=== PATIENT | female | born 1965 | race African-American/Black ===

== ENCOUNTER 2019-02-14 08:13 | Inpatient (IN) ==
[2019-02-14 09:05] LABS: HEMATOCRIT 29.9 % (37.0-47.0); IMM GRAN# 0.01 X1000 (0.0-0.04); IMM GRAN% 0.2 % (0.0-0.5); LYMPH# 2.48 X1000 (1.2-3.4); LYMPH% 37.5 % (20.5-51.1); MCH 32.1 PG (27-31); MCHC 33.4 g/dL (33-37); MCV 95.8 FL (81-99); MONO% 6.1 % (1.7-9.3); MPV 11.3 FL (7.4-10.4); NEUT# 3.72 X1000 (1.4-6.5); NEUT% 56.2 % (42.2-75.2); PLT 116 X1000 (130-400); RBC 3.12 XMIL (4.2-5.4); RDW 12.8 % (11.5-14.5); WBC 6.61 X1000 (4.8-10.8)
[2019-02-14 09:15] LABS: ALBUMIN 4.3 g/dL (3.5-5.0); CALCIUM 9.3 mg/dL (8.8-10.2); CREATININE 1.7 mg/dL (0.5-0.9); MAGNESIUM 1.7 mg/dL (1.5-2.7); POTASSIUM 3.4 mmol/L (3.5-5.1); TOTAL BILIRUBIN 0.3 mg/dL (0.20-1.00); TOTAL PROTEIN 6.9 g/dL (6.3-8.3)
[2019-02-14 11:23] LABS: URINE SOURCE CATH
[2019-02-14 11:35] LABS: UR AMPHETAMINES QUAL NONE DETECTED (NONE DETECT); UR BARBITUATES QUAL NONE DETECTED (NONE DETECT); UR BENZODIAZEPIN QUAL NONE DETECTED (NONE DETECT); UR CANNABINOIDS QUAL NONE DETECTED (NONE DETECT); UR COCAINE QUAL NONE DETECTED (NONE DETECT); UR METHADONE QUAL NONE DETECTED (NONE DETECT); UR METHAMPHETAMINE QUAL NONE DETECTED (NONE DETECT); UR OPIATES QUAL NONE DETECTED (NONE DETECT); UR OXYCODONE QUAL NONE DETECTED (NONE DETECT); UR PCP QUAL NONE DETECTED (NONE DETECT); UR PROPOXYPHENE QUAL NONE DETECTED (NONE DETECT); UR TCA QUAL NONE DETECTED (NONE DETECT)
[2019-02-14 11:56] LABS: BILIRUBIN URINE NEGATIVE (NEGATIVE); BLOOD URINE TRACE (NEGATIVE); COLOR YELLOW; GLUCOSE URINE NEGATIVE (NEGATIVE); KETONE URINE TRACE mg/dL (NEGATIVE); LEUKOCYTES URINE MODERATE (NEGATIVE); NITRITE URINE NEGATIVE (NEGATIVE); PH URINE 6.5; PROTEIN URINE TRACE mg/dL (NEGATIVE); SP GRAVITY URINE 1.016; TURBIDITY URINE TURBID (CLEAR); UROBILINOGEN URINE 4 mg/dL (NORMAL)
[2019-02-14 12:10] LABS: UR EPITHELIAL CELLS <10 /HPF (<10); URINE BACTERIA 2+ /HPF; URINE CASTS NONE SEEN; URINE CRYSTALS NONE SEEN; URINE RBC <10 /HPF (<10); URINE SMALL ROUND CELLS NONE SEEN; URINE YEAST NONE SEEN
[2019-02-14 12:11] LABS: URINE WBC <10 /HPF (<10)
[2019-02-14 13:55] LABS: HEMOGLOBIN A1C 4.6 % (4.8-6.0)
[2019-02-15 05:18] LABS: BASO# 0.01 X1000 (0.0-0.2); BASO% 0.1 % (0.0-0.8); HEMATOCRIT 29.9 % (37.0-47.0); HEMOGLOBIN 9.9 g/dL (12.0-16.0); IMM GRAN# 0.01 X1000 (0.0-0.04); IMM GRAN% 0.1 % (0.0-0.5); LYMPH% 30.6 % (20.5-51.1); MCH 31.9 PG (27-31); MCHC 33.1 g/dL (33-37); MCV 96.5 FL (81-99); MONO# 0.56 X1000 (0.11-0.59); MONO% 7.8 % (1.7-9.3); MPV 11.5 FL (7.4-10.4); NEUT# 4.42 X1000 (1.4-6.5); NEUT% 61.4 % (42.2-75.2); PLT 119 X1000 (130-400); RDW 13.2 % (11.5-14.5)
[2019-02-15 05:37] LABS: ALBUMIN 4.1 g/dL (3.5-5.0); CALCIUM 9.4 mg/dL (8.8-10.2); CREATININE 1.5 mg/dL (0.5-0.9); MAGNESIUM 1.7 mg/dL (1.5-2.7); POTASSIUM 3.6 mmol/L (3.5-5.1); TOTAL BILIRUBIN 0.3 mg/dL (0.20-1.00); TOTAL PROTEIN 6.9 g/dL (6.3-8.3)
[2019-02-16 07:17] LABS: CHLORIDE 110 mmol/L (98-107); POTASSIUM 3.9 mmol/L (3.5-5.1); SODIUM 146 mmol/L (136-145); TCO2 24 mmol/L (25-35)
[2019-02-16 07:18] LABS: AGAP 12; ALBUMIN 3.9 g/dL (3.5-5.0); ALKALINE PHOSPHATASE 64 U/L (32-104); BUN 19 mg/dL (8-22); CALCIUM 9.7 mg/dL (8.8-10.2); COSMO 293; CREATININE 1.3 mg/dL (0.5-0.9); GLUCOSE 102 mg/dL (70-104); GOT 13 U/L (10-30); TOTAL PROTEIN 6.9 g/dL (6.3-8.3)
[2019-02-16 07:19] LABS: GPT 5 U/L (10-36); MAGNESIUM 1.6 mg/dL (1.5-2.7)
[2019-02-16 07:27] VITALS: BP 159/88
[2019-02-16 08:52] LABS: EOS# 0.01 X1000 (0.0-0.7); EOS% 0.2 % (0.0-10.0); HEMATOCRIT 28.9 % (37.0-47.0); HEMOGLOBIN 9.4 g/dL (12.0-16.0); IMM GRAN# 0.02 X1000 (0.0-0.04); IMM GRAN% 0.3 % (0.0-0.5); LYMPH# 2.42 X1000 (1.2-3.4); LYMPH% 38.9 % (20.5-51.1); MCH 31.6 PG (27-31); MCHC 32.5 g/dL (33-37); MCV 97.3 FL (81-99); MONO# 0.59 X1000 (0.11-0.59); MONO% 9.5 % (1.7-9.3); MPV 11.2 FL (7.4-10.4); NEUT# 3.18 X1000 (1.4-6.5); NEUT% 51.1 % (42.2-75.2); PLT 103 X1000 (130-400); RBC 2.97 XMIL (4.2-5.4); RDW 13.1 % (11.5-14.5); WBC 6.22 X1000 (4.8-10.8)
== END 2019-02-16 12:10 | disposition home health service (06) | DRG 683 ==
LOC: P.ED 08:13 → P.MEDSURG 13:25 → SUATTDRO 13:25
PROVIDERS: ATTEND Internal Medicine

== ENCOUNTER 2019-05-06 08:12 | Inpatient (IN) ==
[2019-05-06] MEDS ORDERED: NS 1,000 ML IV ONE ×2 (09:18→11:27)
[2019-05-06] MEDS ORDERED: ZOFRAN IV ONE (09:18)
[2019-05-06 09:20] LABS: URINE SOURCE CLEAN CATCH
[2019-05-06 09:23] LABS: BILIRUBIN URINE NEGATIVE (NEGATIVE); BLOOD URINE NEGATIVE (NEGATIVE); COLOR YELLOW; GLUCOSE URINE NEGATIVE (NEGATIVE); KETONE URINE TRACE mg/dL (NEGATIVE); LEUKOCYTES URINE NEGATIVE (NEGATIVE); NITRITE URINE NEGATIVE (NEGATIVE); PROTEIN URINE TRACE mg/dL (NEGATIVE); SP GRAVITY URINE 1.016; TURBIDITY URINE CLEAR (CLEAR); UR EPITHELIAL CELLS <10 /HPF (<10); URINE BACTERIA NEGATIVE /HPF; URINE RBC <10 /HPF (<10); URINE WBC <10 /HPF (<10); UROBILINOGEN URINE NORMAL (NORMAL)
--- NOTE | 2019-05-06 09:24 | PROVIDER DOCUMENTATION ---
HPI-Abdominal Pain/GI Problem - General Chief Complaint: Nausea/Vomiting Stated Complaint: ABD PAIN / VOMITTING / LEG PAIN Time Seen by Provider: 05/06/19 09:02 Allergies/Adverse Reactions: Patient Allergies Allergy/AdvReac Type Severity Reaction Status Date / Time phenobarbital Allergy ITCHING Verified 02/14/19 14:25 Home Medications: Home Medication List Medication Instructions Recorded Confirmed Last Taken Type Carbamazepine [Tegretol] 200 mg PO TID@0900,1500,2100 02/14/19 02/14/19 Unknown History Cetirizine [Zyrtec] 10 mg PO DAILY 02/14/19 02/14/19 Unknown History Divalproex Sodium 500 mg PO TID@0900,1500,2100 02/14/19 02/14/19 Unknown History Lisinopril/Hydrochlorothiazide 1 ea PO DAILY 02/14/19 02/14/19 Unknown History [Lisinopril-Hctz 20-25 mg Tab] Calcium Carbonate Chew [Tums] 500 mg PO TID PRN PRN tab.chew 02/16/19 Unknown Rx Pantoprazole [Protonix] 40 mg PO DAILY@0700 #30 tab 02/16/19 Unknown Rx - History of Present Illness-ABD Nature of Presenting Problems: 53yof present to ER with c/o n/v x 3 days. Denies fever. Reports some abd cramping. Denies urinary s/s. Pt poor historian. Pt states she had an upper GI by Dr Mrac 2 weeks ago but unable to verify results of this. Abdominal Pain Onset Location: reports: generalized abdomen Pain Radiation: reports: no radiation Quality of Pain: reports: cramping Onset/Duration: reports: 3 days ago Timing: reports: still present Modifying Factors: improves with: nothing Associated Symptoms: reports: malaise, nausea, vomiting, weakness. denies: d iaphoresis, fever/chills, genitourinary problems Review of Systems - Adult - REVIEW OF SYSTEMS - ADULT Constitutional: reports: no symptoms reported. denies: chills, fever Eyes: reports: no symptoms reported Ears, Nose, Mouth & Throat: reports: no symptoms reported Cardiovascular: reports: no symptoms reported. denies: chest pain Respiratory: reports: no symptoms reported. denies: shortness of breath Gastrointestinal: reports: see HPI, abdominal pain, nausea, vomiting Genitourinary: reports: no symptoms reported. denies: dysuria, frequency Musculoskeletal: reports: no symptoms reported Integumentary: reports: no symptoms reported Neurological: reports: no symptoms reported Psychiatric: reports: no symptoms reported Endocrine: reports: no symptoms reported Hematologic/Lymphatic: reports: no symptoms reported Allergic/Immunologic: reports: no symptoms reported All Other Systems: Reviewed and Negative Past History - Adult - PAST MEDICAL HISTORY-ADULT Review of Records: reports: Old Records Reviewed, Nursing Assessment Review, Medications Reviewed, Social history reviewed & non-contributory. Major Childhood Illnesses: reports: denies history Cardiovascular: reports: HTN Respiratory: reports: denies history Gastrointestinal: reports: denies history Obstetrical/Gynecological: reports: denies history Genitourinary: reports: denies history Musculoskeletal: reports: denies history Neurological: reports: Seizures/Epilepsy Endocrine/Immune: reports: denies history Other Conditions: reports: denies history - PRIOR SURGERIES/PROCEDURES Surgical/Procedure History: reports: hysterectomy, other (left arm) - IMMUNIZATION STATUS Childhood Immunizations: See Nurse Assessment Flu Vaccine: See Nurse Assessment - FAMILY HISTORY Family History: reviewed, not pertinent - SOCIAL HISTORY Smoking: denies Physical Exam-General - PHYSICAL EXAM-ADULT Initial Vital Signs Reviewed: Yes - CONSTITUTIONAL General Appearance: alert, no apparent distress, obese - EYES Eyes: PERRL/EOMI - HEAD, EARS, NOSE, MOUTH & THROAT HENMT: TMs normal, pharynx normal, other (dry mucous membranes). negative: angioedema - NECK Neck: full range of motion, supple, normal inspection. negative: lymphadenopathy - RESPIRATORY Respiratory: lungs clear, normal breath sounds, no respiratory distress, no accessory muscle use - CARDIOVASCULAR Cardiovascular: regular rate, rhythm - GASTROINTESTINAL (ABDOMEN) Abdominal Exam: normal bowel sounds, non tender, soft. negative: distended, guarding, rigid, rebound - GENITOURINARY Female Genitalia/Pelvic Exam: deferred Rectal Exam: normal exam, normal rectal tone. negative: hemorrhoids Hemoccult Exam: heme negative stool - LYMPHATIC Lymphatic: no adenopathy - MUSCULOSKELETAL Back Exam: normal inspection, no CVA tenderness, no vertebral tenderness Extremity: normal range of motion, normal inspection, normal capillary refill - SKIN Integumentary: normal color, warm/dry. negative: diaphoresis, jaundice, pallor - NEUROLOGIC Neurologic: grossly normal - PSYCHIATRIC Psych/Mental Status: oriented x 3 Progress - PLAN OF CARE/RESULTS Progress/Plan/Lab Results: Vital Signs - 8 hr 05/06/19 08:19 Temperature 98 F Pulse Rate 75 Respiratory Rate 18 Blood Pressure 114/76 O2 Sat by Pulse Oximetry 98 Laboratory Results - last 24 hr 05/06/19 09:10 Urine Source CLEAN CATCH Orders Category Date Time Status Straight Catheterization ORDERED Care 05/06/19 09:05 Completed AMYLASE [CHEM] Stat Lab 05/06/19 09:10 Received CBC WITH DIFF [HEME] Stat Lab 05/06/19 09:10 Results COMPREHENSIVE METABOLIC PANEL [CHEM] Stat Lab 05/06/19 09:10 Received LIPASE [CHEM] Stat Lab 05/06/19 09:10 Received URINALYSIS W/POSS RFLX CULT [URINALYSIS] Stat Lab 05/06/19 09:10 Results 0.9% Sodium Chloride Inj [Ns] 1,000 ml Med 05/06/19 09:18 Active IV 999 mls/hr Ondansetron [Zofran] Med 05/06/19 09:18 Discontinued 4 mg IV NOW ONE Result Diagrams: 05/06/19 12:21 05/06/19 12:21 - REASSESSMENT Reassessment #1 Time Reassessed: 10:51 (discuss pt with Dr Lopez, suggests orthostatics) Reassessment #2 Time Reassessed: 12:00 (No nv since arrival, pt states she does feel some better. Pt's mucous membranes still appears dry.) - EKG 1 Time of EKG reading by physician:: 11:04 EKG Read and Signed by:: Jim Lopez EKG Interpretation (*Must complete 3 of following elements*): Normal Rate: 75 Rhythm: NSR - XRAY 1 XRAY Study: Abdomen Impression: See EMR Report (EXAM: ABDOMEN FLAT/UPRIGHT HISTORY: n,v TECHNIQUE: Three views COMPARISON: 02/14/2019 FINDINGS: No bowel obstruction. No organomegaly. No foreign body. No abnormal calcifications. IMPRESSION: Negative exam Electronically signed by Christian Dodson 05/06/2019 1 2:09 PM) - CONSULTS/PCP/HOSPITALIST Notification #1 *Consult/PCP/Hospitalist*: Dr Sotomayor Time Discussed: 12:07 (suggests rechecking labs after the fluids, either d/c home and have f/u with them, if labs have worsened then admit to obs) #2 Consult: Dr Patel Time Discussed: 13:33 (discussed pt while in ED, will consult after repeat CBC & CMP) Departure - Departure Date of Disposition Decision: 05/06/19 Time of Disposition Decision: 13:34 DIAGNOSIS: Elevated anticonvulsant drug level, ZIGGY (acute kidney injury), Seizure disorder, Dehydration Vomiting Qualifiers: Vomiting type: unspecified Vomiting Intractability: non-intractable Nausea presence: with nausea Qualified Code(s): R11.2 - Nausea with vomiting, unspecified Anemia Qualifiers: Anemia type: unspecified type Qualified Code(s): D64.9 - Anemia, unspecified Disposition: ADMITTED INPATIENT 09 Certified Medical Emergency: Emergent Condition: Fair Referrals and Follow-Ups: Jason Olivares MD [Primary Care Provider] - - Critical Care Note This patient required my direct & personal management of CC.: No Attestation - Physician/ MIGUEL A Attestation Patient care was provided by Advanced Practice Provider:: Yes Advanced Practice Provider:: Mikel Andino Advanced Practice Provider documentation review:: The Mid-level provider documentation, treatment plan and medical decision making was reviewed by the physician who agrees with all treatment and medical decision making by the MLP. The physician spent face to face time with patient:: No Advanced Practice Provider documentation review:: Supervising physician onsite and consulted in the evaluation and care of this patient. The physician did not have a face to face encounter with the patient.
[2019-05-06 09:42] LABS: AGAP 16; ALBUMIN 3.9 g/dL (3.5-5.0); ALKALINE PHOSPHATASE 63 U/L (32-104); BUN 29 mg/dL (8-22); CALCIUM 9.4 mg/dL (8.8-10.2); CHLORIDE 107 mmol/L (98-107); COSMO 296; CREATININE 1.7 mg/dL (0.5-0.9); ESTIMATED GFR 32; GLUCOSE 122 mg/dL (70-104); GOT 14 U/L (10-30); GPT < 5 U/L (10-36); LIPASE 58 U/L (13-60); POTASSIUM 3.6 mmol/L (3.5-5.1); SODIUM 145 mmol/L (136-145); TCO2 22 mmol/L (25-35); TOTAL PROTEIN 7.1 g/dL (6.3-8.3)
[2019-05-06 09:54] LABS: BASO# 0.01 X1000 (0.0-0.2); BASO% 0.2 % (0.0-0.8); EOS# 0.01 X1000 (0.0-0.7); EOS% 0.2 % (0.0-10.0); HEMATOCRIT 26.7 % (37.0-47.0); HEMOGLOBIN 8.9 g/dL (12.0-16.0); IMM GRAN# 0.03 X1000 (0.0-0.04); IMM GRAN% 0.5 % (0.0-0.5); LYMPH# 2.39 X1000 (1.2-3.4); MCH 32.7 PG (27-31); MCHC 33.3 g/dL (33-37); MCV 98.2 FL (81-99); MONO# 0.52 X1000 (0.11-0.59); MONO% 8.7 % (1.7-9.3); MPV 11.8 FL (7.4-10.4); NEUT# 3.02 X1000 (1.4-6.5); NEUT% 50.4 % (42.2-75.2); PLT 67 X1000 (130-400); RBC 2.72 XMIL (4.2-5.4); RDW 13.6 % (11.5-14.5); WBC 5.98 X1000 (4.8-10.8)
[2019-05-06 11:46] LABS: OCCULT BLOOD 1 NEGATIVE (NEGATIVE)
--- NOTE | 2019-05-06 12:12 | Diag Imaging Result Doc PS360 ---
EXAM: ABDOMEN FLAT/UPRIGHT HISTORY: n,v TECHNIQUE: Three views COMPARISON: 02/14/2019 FINDINGS: No bowel obstruction. No organomegaly. No foreign body. No abnormal calcifications. IMPRESSION: Negative exam Electronically signed by Christian Dodson 05/06/2019 12:09 PM
[2019-05-06 13:48] LABS: HEMOGLOBIN 8.2 g/dL (12.0-16.0); IMM GRAN# 0.02 X1000 (0.0-0.04); IMM GRAN% 0.5 % (0.0-0.5); LYMPH% 32.5 % (20.5-51.1); MCH 32.9 PG (27-31); MCHC 32.8 g/dL (33-37); MCV 100.4 FL (81-99); MONO# 0.38 X1000 (0.11-0.59); MONO% 8.8 % (1.7-9.3); MPV 12.3 FL (7.4-10.4); NEUT# 2.51 X1000 (1.4-6.5); NEUT% 58.2 % (42.2-75.2); PLT 78 X1000 (130-400); RBC 2.49 XMIL (4.2-5.4); RDW 13.5 % (11.5-14.5); WBC 4.31 X1000 (4.8-10.8)
[2019-05-06 13:59] LABS: ESTIMATED GFR 32
[2019-05-06 14:09] LABS: AGAP 17; ALBUMIN 3.4 g/dL (3.5-5.0); ALKALINE PHOSPHATASE 54 U/L (32-104); BUN 27 mg/dL (8-22); CALCIUM 8.4 mg/dL (8.8-10.2); CHLORIDE 112 mmol/L (98-107); COSMO 293; CREATININE 1.7 mg/dL (0.5-0.9); GLUCOSE 88 mg/dL (70-104); GOT 12 U/L (10-30); GPT < 5 U/L (10-36); POTASSIUM 3.9 mmol/L (3.5-5.1); SODIUM 145 mmol/L (136-145); TCO2 16 mmol/L (25-35); TOTAL PROTEIN 5.8 g/dL (6.3-8.3)
[2019-05-06] MEDS ORDERED: ZOFRAN IV PRN (15:09)
--- NOTE | 2019-05-06 16:57 | EKG Report ---
Test Performed on : 05/06/2019 11:04:38 AM Test Reason : drug toxicity Blood Pressure : / mmHG Vent. Rate : 075 BPM Atrial Rate : 074 BPM P-R Int : 000 ms QRS Dur : 074 ms QT Int : 402 ms P-R-T Axes : 000 015 022 degrees QTc Int : 448 ms Accelerated Junctional rhythm. Abnormal ECG When compared with ECG of 16-FEB-2019 10:00, Junctional rhythm. has replaced Sinus rhythm. Unconfirmed Result
[2019-05-06] MEDS: NS 1,000 ML IV SCH (18:25)
[2019-05-06] MEDS: PROTONIX IV SCH (18:25)
--- NOTE | 2019-05-06 20:01 | HISTORY AND PHYSICAL ---
CHIEF COMPLAINT: Nausea, vomiting for 3 days. HPI: This is a 53-year-old female with a prior history of seizures, hypertension, who presents to the emergency room with family member stating that she has been vomiting for 3 days. She has some abdominal cramping although this is during the time that she vomits, it does resolve once vomiting stops. She denied any black or bloody vomitus or stools, any diarrhea, constipation, any fevers or chills. The patient and the male with her are very poor historians. They did state that they saw Dr. Olivares, her primary care physician this week although neither can state what the appointment was for. PAST MEDICAL HISTORY: Seizures and hypertension, hyperlipidemia. PAST SURGICAL HISTORY: Left arm surgery, hysterectomy. SOCIAL HISTORY: Denies alcohol, tobacco or illicit drug use. Phenobarbital is documented causes itching. HOME MEDICATIONS: A list will be obtained by the nursing staff and once verified will review and restart as appropriate. REVIEW OF SYSTEMS: Very difficult to obtain from the patient and family member. They deny any chest pain or palpitations, any syncope or dizziness, any shortness of breath, cough, fever, chills, any black or bloody vomitus or stools, any urinary symptoms. PHYSICAL EXAM: This is a 53-year-old female who is sitting up in the stretcher in the emergency room in no distress. VITAL SIGNS: Blood pressure is 126/74, heart rate of 81, respirations are 16, temperature is 97.4 degrees with room air saturations 100%. Orthostatic vital signs lying blood pressure is 132/86 with a heart rate of 85, standing blood pressure is 134/112 with a heart rate of 120, sitting blood pressure is 141/79 with a heart rate of 78. HEENT: Pupils are equal, round, react to light. EOMs are intact. Sclerae are anicteric. Head is normocephalic, atraumatic. Mucous membranes are dry. NECK: Supple with trachea midline. CARDIOVASCULAR: Regular rate and rhythm. S1 and S2 are appreciated. She has no lower extremity edema. She denies any calf tenderness. Peripheral pulses palpable x4 extremities. PULMONARY: Breath sounds clear. No increased work of breathing noted. Chest rises and fall symmetric respiration. Chest wall is nontender to palpation. GASTROINTESTINAL: Abdomen soft, nontender, nondistended with bowel sounds in all 4 quadrants. NEUROLOGIC: She is awake, she appears lethargic. She answers questions although speech is mumbly at times. Forehead is spared, she is awake, although she is lethargic. She is oriented x3. LABS: WBC is 5.9 with hemoglobin 8.9, hematocrit 26.7 and platelets of 67,000. Sodium 145, potassium 3.6, BUN 2.9, creatinine 1.7 with a glucose of 122. Urinalysis is essentially negative. Stool for occult blood is negative. Valproic acid is 109 with carbamazepine 3.8. Abdominal x- ray is a negative exam. No bowel obstruction, no organomegaly, no foreign body. EKG reveals sinus rhythm at a rate of 75. ASSESSMENT AND PLAN: 1. Nausea, vomiting very likely secondary to valproic acid toxicity. 2. Dehydration secondary to nausea and vomiting. 3. Orthostasis secondary to dehydration. 4. Chronic anemia. Patient states that she underwent an EGD recently per Dr. Kerr, although were unable to obtain results at this time. 5. Acute kidney injury in the setting of chronic kidney disease with a baseline GFR looks like 28 to 32. 6. Seizure disorder with a Depakote toxicity. PLAN: 1. The patient will be admitted to the medical-surgical floor placed on telemetry. 2. Will check neuro checks every shift. 3. Orthostatic vital signs q.12 hours. 4. Monitor I and O. 5. She was given 2 L of saline in the emergency room. Will continue with hydration. 6. Check CBC and CMP in the morning. 7. Protonix IV. 8. Zofran for nausea, vomiting. 9. Give clear liquids as tolerated. 10. Course will hold her Depakote and will recheck a level in the morning. 11. For DVT prophylaxis will use SCDs. No anticoagulation as she is anemic and has had a recent EGD. 12. For GI prophylaxis as stated above Protonix. 13. Further treatments pending hospital course. Dictated by SHIREEN Agosto for Mekhi Jimenez MD cc: SHIREEN Agosto MD
--- NOTE | 2019-05-07 01:20 | HISTORY AND PHYSICAL ---
ADDENDUM: Patient seen and examined by myself. Full note dictated and discussed with nurse practitioner. Patient presented to the hospital with nausea, vomiting, abdominal pain. We are going to admit her to the hospital. Her hemoglobin and hematocrit actually are a little bit lower. She did recently have an EGD that was negative. We will recheck labs in the morning. Place her on fluids, Zofran, and we will follow. cc: Mekhi Jimenez MD
[2019-05-07 06:31] LABS: HEMATOCRIT 25.4 % (37.0-47.0); HEMOGLOBIN 8.1 g/dL (12.0-16.0); MCHC 31.9 g/dL (33-37); MCV 100.4 FL (81-99); MPV 11.3 FL (7.4-10.4); RBC 2.53 XMIL (4.2-5.4); RDW 13.9 % (11.5-14.5); WBC 4.51 X1000 (4.8-10.8)
[2019-05-07 06:33] LABS: AGAP 13; ALBUMIN 3.5 g/dL (3.5-5.0); ALKALINE PHOSPHATASE 55 U/L (32-104); BUN 24 mg/dL (8-22); CHLORIDE 114 mmol/L (98-107); COSMO 299; CREATININE 1.6 mg/dL (0.5-0.9); ESTIMATED GFR 34; GLUCOSE 85 mg/dL (70-104); GOT 13 U/L (10-30); GPT < 5 U/L (10-36); POTASSIUM 3.2 mmol/L (3.5-5.1); SODIUM 149 mmol/L (136-145); TCO2 23 mmol/L (25-35); TOTAL PROTEIN 6.3 g/dL (6.3-8.3)
[2019-05-07] MEDS: NS 1,000 ML IV SCH (07:04)
[2019-05-07] MEDS ORDERED: KLOR-CON PO ONE (07:57)
[2019-05-07] MEDS ORDERED: NS 1,000 ML IV SCH (07:58)
--- NOTE | 2019-05-07 13:38 | PROGRESS NOTE ---
DATE: 05/07/2019 SUBJECTIVE: The patient notes her nausea is improving, although, she has really not eaten yet. Denies any fevers or chills. PHYSICAL EXAMINATION: Vital Signs: Reviewed. Temperature 98 degrees, pulse 75, respiratory rate 18, BP 133/78. General: The patient is awake, pleasant, no distress. HEENT: Normocephalic. Neck: Supple. Cardiovascular: Regular rate. Chest: Clear. No crackles. Abdomen: Soft, nontender. Extremities: Moves all extremities. ASSESSMENT: 1. Nausea and vomiting. 2. Abdominal pain. 3. Dehydration. 4. Orthostasis secondary to dehydration. 5. Seizure disorder with Depakote toxicity. PLAN: We are going to advance her diet, continue her in the hospital today and will follow. We will continue to hold her Depakote. cc: Mekhi Jimenez MD
[2019-05-07] MEDS: PROTONIX IV SCH (15:23)
[2019-05-07] MEDS: SODIUM CHLORIDE 0.9% INJ SCH (15:23)
--- NOTE | 2019-05-07 17:13 | EKG Report ---
Test Performed on : 05/07/2019 4:47:28 PM Test Reason : HEART CHANGE Blood Pressure : / mmHG Vent. Rate : 062 BPM Atrial Rate : 062 BPM P-R Int : 176 ms QRS Dur : 074 ms QT Int : 442 ms P-R-T Axes : 069 058 063 degrees QTc Int : 448 ms Normal sinus rhythm. Normal ECG When compared with ECG of 06-MAY-2019 11:04, (Unconfirmed) Sinus rhythm. has replaced Junctional rhythm. Unconfirmed Result
[2019-05-08 06:35] LABS: ESTIMATED GFR 36
[2019-05-08 06:55] LABS: AGAP 12; ALBUMIN 3.1 g/dL (3.5-5.0); ALKALINE PHOSPHATASE 51 U/L (32-104); BUN 20 mg/dL (8-22); CALCIUM 8.9 mg/dL (8.8-10.2); CHLORIDE 113 mmol/L (98-107); COSMO 295; CREATININE 1.5 mg/dL (0.5-0.9); GLUCOSE 96 mg/dL (70-104); GOT 12 U/L (10-30); MAGNESIUM 1.5 mg/dL (1.5-2.7); POTASSIUM 3.6 mmol/L (3.5-5.1); SODIUM 147 mmol/L (136-145); TCO2 22 mmol/L (25-35); TOTAL PROTEIN 5.6 g/dL (6.3-8.3)
[2019-05-08 07:15] LABS: GPT < 5 U/L (10-36)
[2019-05-08 07:23] LABS: HEMATOCRIT 22.6 % (37.0-47.0); HEMOGLOBIN 7.2 g/dL (12.0-16.0); MCH 32.3 PG (27-31); MCHC 31.9 g/dL (33-37); MCV 101.3 FL (81-99); RBC 2.23 XMIL (4.2-5.4); RDW 13.7 % (11.5-14.5); WBC 4.58 X1000 (4.8-10.8)
[2019-05-08] MEDS ORDERED: NS 500 ML IV ONE ×2 (09:40→11:17)
[2019-05-08] MEDS ORDERED: BENADRYL PO PRN (10:38)
[2019-05-08] MEDS: SODIUM CHLORIDE 0.9% INJ SCH (16:50)
[2019-05-08] MEDS: PROTONIX IV SCH (16:50)
[2019-05-08 18:34] LABS: UR AMPHETAMINES QUAL NONE DETECTED (NONE DETECT); UR BARBITUATES QUAL NONE DETECTED (NONE DETECT); UR BENZODIAZEPIN QUAL NONE DETECTED (NONE DETECT); UR COCAINE QUAL NONE DETECTED (NONE DETECT); UR METHADONE QUAL NONE DETECTED (NONE DETECT); UR METHAMPHETAMINE QUAL NONE DETECTED (NONE DETECT); UR OPIATES QUAL NONE DETECTED (NONE DETECT); UR OXYCODONE QUAL NONE DETECTED (NONE DETECT)
[2019-05-08 18:35] LABS: UR CANNABINOIDS QUAL NONE DETECTED (NONE DETECT); UR PCP QUAL NONE DETECTED (NONE DETECT); UR PROPOXYPHENE QUAL NONE DETECTED (NONE DETECT); UR TCA QUAL NONE DETECTED (NONE DETECT)
--- NOTE | 2019-05-08 20:52 | PROGRESS NOTE ---
DATE: 05/08/2019 SUBJECTIVE: Patient with no new complaints. States her nausea is improved but still fatigued. She has not really been getting out of bed. PHYSICAL EXAMINATION: Vital Signs: Temperature 98 degrees, pulse 75, respiratory 20, BP 130/80. General: Patient is pleasant. She is in no distress. HEENT: Normocephalic. Neck: Supple. Cardiovascular: Regular rate. Chest: Clear. Abdomen: Soft. Extremities: Moves all extremities. ASSESSMENT: 1. Anemia. Hemoglobin and hematocrit have continued to drop. She was 10 a few months ago and 8 on admission, currently down to 7 and 22. Therefore, we are going to transfuse and we will follow. She has recently had an EGD that is reported as negative. Unsure if she has had a colonoscopy but she has had no blood in her stool. 2. Hypernatremia. 3. Hypokalemia. 4. Acute on chronic renal disease. 5. Volume depletion, resolved. 6. Seizure disorder. PLAN: We are going to continue patient in the hospital, transfuse and we will follow. She will most likely need an outpatient colonoscopy if she has not had one recently. cc: Mekhi Jimenez MD
[2019-05-09] MEDS ORDERED: TUMS PO PRN (07:10)
[2019-05-09 07:57] LABS: HEMATOCRIT 30.8 % (37.0-47.0); HEMOGLOBIN 10.1 g/dL (12.0-16.0); MCHC 32.8 g/dL (33-37); MCV 97.5 FL (81-99); MPV 10.7 FL (7.4-10.4); RBC 3.16 XMIL (4.2-5.4); RDW 14.9 % (11.5-14.5); WBC 6.18 X1000 (4.8-10.8)
[2019-05-09 08:01] VITALS: BP 129/71
[2019-05-09 08:14] LABS: ALBUMIN 3.4 g/dL (3.5-5.0); CALCIUM 9.1 mg/dL (8.8-10.2); CREATININE 1.5 mg/dL (0.5-0.9); MAGNESIUM 1.4 mg/dL (1.5-2.7); POTASSIUM 3.8 mmol/L (3.5-5.1); TOTAL BILIRUBIN 0.5 mg/dL (0.20-1.00)
[2019-05-09] MEDS ORDERED: DEPAKOTE PO SCH (09:00)
[2019-05-09] MEDS ORDERED: TEGRETOL PO SCH (09:00)
[2019-05-09] MEDS ORDERED: ZYRTEC PO SCH (09:00)
--- NOTE | 2019-05-09 13:52 | DISCHARGE SUMMARY ---
ADMISSION DATE: 05/06/2019 DISCHARGE DATE: 05/09/2019 ADMISSION DIAGNOSIS: 1. Nausea, vomiting secondary to valproic acid toxicity. 2. Dehydration secondary to nausea, vomiting. 3. Orthostasis secondary to dehydration. 4. Chronic anemia. 5. Acute kidney injury on chronic kidney disease. 6. Seizure disorder. DISCHARGE DIAGNOSIS: 1. Anemia that required blood transfusion but negative stool for blood. 2. Hypernatremia. 3. Hypokalemia. 4. Acute on chronic renal disease. 5. Volume depletion resolved. 6. Seizure disorder with valproic acid toxicity now resolved. CONSULTATIONS: None. SURGERIES PROCEDURES: None. She did get a 2 packed red blood cells. HOSPITAL COURSE: Ms. Violette Preston is a 53-year-old female who presents with complaints of nausea, vomiting for 3 days, has history of seizures, hypertension, it was felt that she had dehydration, valproic acid toxicity and significant anemia that she even required 2 units packed red blood cells. Her stool is negative for blood. She has had a recent EGD. Will have her follow up with gastroenterology as an outpatient with Dr. Kerr. She was on Protonix prophylactically here. Her Depakote was decreased from 750 to 500 three times a day and she is now stable for discharge home after receiving IV fluid hydration which resolved the acute kidney dysfunction. DISCHARGE VITAL SIGNS: Temperature 98.1 degrees, heart rate 59, respiratory rate 18, blood pressure 132/73, O2 saturation 100% on room air, she had orthostatic vitals heart rate changed quite a bit it looks like supine heart rate was 68, sitting it was 48, standing it was 77. Blood pressure supine 129/71, sitting 115/70 and standing was 120/80. DISCHARGE LAB DATA: White blood cells 6000, hemoglobin 10, hematocrit 30, platelet count 103,000. Sodium 147, potassium 3.8, BUN 18, creatinine is 1.5, glucose 87, calcium 9.1, magnesium 1.4, albumin 3.4. Urine drug screen negative. Her last valproic acid level was 68.8. IMAGING: Abdominal x-ray negative exam. EKG sinus rhythm, rate 60, QTc was 448. PHYSICIAN FOLLOW UP: Dr. Kerr on 05/17/2019 at 9:30 a.m. and Jason Ricks. DISCHARGE MEDICATIONS: 1. Simvastatin 20 mg p.o. nightly. 2. Depakote 500 mg p.o. t.i.d. 3. Tegretol 200 mg p.o. t.i.d. 4. Zyrtec 10 mg p.o. daily. 5. Prilosec 20 mg p.o. daily. 6. Tums 500 mg p.o. t.i.d. DISCHARGE EDUCATION: If her condition changes contact physician and/or return to the emergency department, changes may include but not limited to shortness of breath, increased fatigue, excessive bleeding, unexplained weight loss or gain, unmanageable pain, signs or symptoms of infection. DISCHARGE DISPOSITION: Home with home health. Dictated by SHIREEN Moore for Mekhi Jimenez MD cc: SHIREEN Moore MD
[2019-05-09] MEDS ORDERED: ZOCOR PO SCH (21:00)
--- NOTE | 2019-05-09 23:32 | DISCHARGE SUMMARY ---
ADMISSION DATE: 05/06/2019 DISCHARGE DATE: 05/09/2019 Patient seen and examined by myself. Full note dictated and discussed with nurse practitioner. On discharge, patient is awake, alert. She did have some anemia requiring transfusion. 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 She has had a recent EGD but may need colonoscopy. If this is negative, she may need to follow up with Hematology. Patient understands. Currently nausea and vomiting have resolved. cc: Mekhi Jimenez MD
== END 2019-05-09 13:43 | disposition home health service (06) | DRG 641 ==
LOC: P.ED 08:12 → P.MEDSURG 08:12 → OBSVTOIN 17:29
PROVIDERS: ATTEND Family Medicine